=== PATIENT | female | born 1980 | race Caucasian/White ===

== ENCOUNTER 2017-12-04 12:07 | Emergency (ER) | payer MEDICAID ==
[~2017-12-04 12:07] MED LIST: ACE3 PO; ACE500 PO; CEPH-13 PO; CIPR-344 PO; CYC10 PO; DIPH-740 PO; DOC100 PO; DOXY-179 PO; ETOD200C26 PO; FAM20 PO; HYDR-3083 PO; HYDR-3104 PO; HYDR-653 PO; HYDR-654 PO; HYDR50CA47 PO; IBU200 PO; IBU600 PO; IBU800 PO; IBUP800T37 PO; KET10 PO; LIT300 PO; LIT300CAP PO; LOR1 PO; LOR5 PO; LOR5/325 PO; LOR7.5/325 PO; MESA250C2 PO; MET4 PO; METHO500 PO; METO-733 PO; METR-1 PO; NAPR-744 PO; NO MEDS; NO ROUTINE MEDS; NOR5/325 PO; OND4 PO; ONDA4TAB PO; OXYC-373 PO; OXYC-865 PO; PER PO; PHEN200T32 PO; PRE20 PO; PRED20TA6 PO; PREN-85 PO; PRO25 PO; PROM-110 PO; RANI-345 PO; SULF-198 PO; TRAZ-133 PO; TRAZ50TA34 PO
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
[2017-12-04 13:30] VITALS: BP 101/71
[2017-12-04] MEDS ORDERED: FLUCONAZOLE 150 MG TAB PO ONE (14:00)
[2017-12-04] MEDS ORDERED: CEPHALEXIN MONO 500 MG CAP PO ONE (14:00)
[2017-12-04] MEDS ORDERED: MUPI15CR10 TP (14:28)
[2017-12-04] MEDS ORDERED: CEPH500T7 PO (14:28)
[2017-12-04] MEDS ORDERED: FLUC150T40 PO (14:29)
== END 2017-12-04 14:36 | disposition home or self-care (01) ==
LOC: ER 12:42
DX: L03.113 Cellulitis of right upper limb (principal); S50.861A Insect bite (nonvenomous) of right forearm, initial encounter
CPT/HCPCS: 87502; 99283

== ENCOUNTER 2018-06-21 19:54 | Emergency (ER) | payer MEDICAID ==
[~2018-06-21 19:54] MED LIST changes: +CEPH500T7 PO; +FLUC150T40 PO; +MUPI15CR10 TP
[2018-06-21 19:59] VITALS: BP 139/89
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
[2018-06-21] MEDS ORDERED: DIPHTH/TETANUS/ACEL. PERTUSSIS IM ONLY ONE (20:15)
[2018-06-21] MEDS ORDERED: IBUPROFEN 600 MG TAB PO ONE (20:45)
== END 2018-06-21 21:03 | disposition home or self-care (01) ==
LOC: ER 20:11
DX: S71.111A Laceration without foreign body, right thigh, initial encounter (principal); S70.11XA Contusion of right thigh, initial encounter; W26.0XXA Contact with knife, initial encounter
CPT/HCPCS: 90471; 90715; 99283

== ENCOUNTER 2018-08-17 16:09 | Emergency (ER) | payer MEDICAID ==
[~2018-08-17 16:09] MED LIST changes: -TRAZ50TA34 PO; +TRAZ50TA52 PO
[2018-08-17 16:13] VITALS: BP 111/79
--- NOTE | 2018-08-17 16:21 | ER Report ---
History and Physical Time Seen By MD: 16:21 Hx. of Stated Complaint: RIGHT EAR PAIN FOR SEVERAL MONTHS HPI/ROS CHIEF COMPLAINT: right ear pain HISTORY OF PRESENT ILLNESS: 37 year old female presents to ED with right ear pain that has been occurring for several months. Reports sharp constant pain in her inner ear that radiates to the back of her head, down her jaw, and down her neck. The pain is sharp and shooting. She takes Aleve approximately 4 times a day and it takes the edge off. Chewing and talking make the pain worse. She notices that the pain is worse when she travels and changes elevation. Reports swollen lymph nodes along her jaw. Reports the ear pain gives her generalized headaches. Reports associated symptoms of dizziness and decreased hearing. Reports associated symptoms of sinus congestion on and off. REVIEW OF SYSTEMS: Cosntitutional: No fever. No appetite change. HENT: Decreased hearing, ear pain, sinus congestion, headache, and dizziness as noted above. No ear drainage. Reports right sided tooth pain, but states she thinks she grinds her mouth at night. Respiratory: No cough, no dyspnea. Cardiovascular: Reports chest pain that comes and goes for the past two months. Pain radiates to her posterior aspect of left arm. No palpitations. Gastrointestinal: No vomiting, no abdominal pain. Genitourinary: Reports decreased urine output that is dark in color. No burning on urination. Musculoskeletal: No back pain. Allergies: Coded Allergies: ciprofloxacin (Verified Allergy, Severe, THROATS SWELLING, AND TONGUE SWELLING, 12/04/17) sulfamethoxazole (Verified Allergy, Severe, THROAT SWELLING AND TONGUE SWELLING, 12/04/17) trimethoprim (Verified Allergy, Severe, THROAT SWELLING AND TONGUE SWELLING, 12/04/17) Home Meds Active Scripts Ketorolac Tromethamine (KETOROLAC TROMETHAMINE) 10 Mg Tab, 10 MG PO Q6H, #20 TAB Prov:SANTIAGOFRANCOIS POWER 08/17/18 Past Medical/Surgical History Past medical hx for seizures, migraines, ulcerative colitis, frequent UTIs, tubal , miscarriages, uterine tear, left broken wrist, fractured hand, fractured right upper arm, depression/anxiety. Past surgical hx of cholecystectomy, cyst removal from ovary, hysterectomy, tubal ligation in 2009, left wrist surgery in 2010. Reviewed Nurses Notes: Yes Hx Smoking: Yes (1/2 TO 1 PACK DAILY FOR 20 YEARS) Smoking Status: Current: Every Day Smoker Exposure to Second Hand Smoke?: Yes Hx Substance Use Disorder: No Hx Alcohol Use: Yes Constitutional Vital Sign - Last 24 Hours 08/17/18 16:13 Temp 97.7 Pulse 72 Resp 20 B/P (MAP) 111/79 Pulse Ox 97 O2 Delivery Room Air Physical Exam General Appearance: The patient is alert, has no immediate need for airway protection and no current signs of toxicity. Eyes: Pupils equal and round no injection. HENT: On palpation of the jaw, the right side felt like a quasi dislocation with rapid reduction while closing the mouth. Left TMJ normal. TMs clear with no bulging bilaterally. No redness in external ears bilaterally. Patient reports pain with palpation of head behind ear. Respiratory: Chest is non tender, lungs are clear to auscultation. Cardiac: regular rate and rhythm Gastrointestinal: Abdomen is soft and non tender, no masses, bowel sounds normal. Musculoskeletal: Neck: Neck is supple and non tender. No swollen lymph nodes. Extremities have full range of motion and are non tender. Skin: No rashes or lesions. DIFFERENTIAL DIAGNOSIS: After history and physical exam differential diagnosis was considered for TMJ, inner ear infection, Eustachian tube dysfunction, sinus infection. Medical Decision Making ED Course/Re-evaluation ED Course Upon arrival to the ED, patient admitted to an exam room, hx and physical obtained, differentials considered. Patient presents with right ear pain that has been occurring for several months. Reports sharp constant pain in her inner ear that radiates to the back of her head, down her jaw, and down her neck. The pain is sharp and shooting. She takes Aleve approximately 4 times a day and it takes the edge off. Chewing and talking make the pain worse. She notices that the pain is worse when she travels and changes elevation. Reports swollen lymph nodes along her jaw. Reports the ear pain gives her generalized headaches. Reports associated symptoms of dizziness and decreased hearing. Reports associated symptoms of sinus congestion on and off. Patient also reports chest pain that comes and goes for the past two months. Pain radiates to her posterior aspect of left arm. No palpitations. As well, patient reports decreased urine output with dark urine. No burning or pain with urination. On exam, heart rate and rhythm regular, lungs are clear. On palpation of the jaw while patient open and closed her mouth, the right side felt like a quasi dislocation with rapid reduction while closing the mouth. Left TMJ normal. TMs clear with no bulging bilaterally. No redness in external ears bilaterally. Discussed with patient about doing a cardiac workup to assess the chest pain. Patient declines workup at this time, stating she had "all that done recently" and does not want to pay for it. Discussed with patient the importance of drinking more water while at work. 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 Since she is have sinus congestion, a eustachian tube dysfunction could also be contributing to the ear pain. Will prescribe toradol to help with her TMJ pain and she is to follow-up with a dentist. Patient reports she may grind her teeth at night, so she is to buy a mouth guard from [employer] to see if that helps with her pain. Patient agrees with plan of care. Decision to Disposition Date: Aug 17, 2018 Decision to Disposition Time: 16:53 Depart Departure Latest Vital Signs Vital Signs Date Time Temp Pulse Resp B/P (MAP) Pulse Ox O2 Delivery O2 Flow Rate FiO2 08/17/18 16:13 97.7 72 20 111/79 97 Room Air Impression: Primary Impression: Temporal mandibular joint disorder Additional Impression: Eustachian tube dysfunction Condition: Improved Disposition: HOME OR SELF-CARE New Scripts Ketorolac Tromethamine (KETOROLAC TROMETHAMINE) 10 Mg Tab 10 MG PO Q6H, #20 TAB Prov: FRANCOIS HENDERSON POWER 08/17/18 Patient Instructions: Temporomandibular Disorder (ED) Additional Instructions: Increase fluid intake. Get plenty of rest. Try wearing a mouth guard at night. Take the medication as prescribed. No Ibuprofen, Aleve, Motrin, Advil or Naproxen while taking the medication. Return to the ER if condition worsens. Follow up with dentist for definitive care for the TMJ. Problem Qualifiers Additional Impression: Eustachian tube dysfunction Laterality: right Qualified Codes: H69.81 - Other specified disorders of eustachian tube, right ear SANTIAGOFRANCOISNINA STEVE Aug 17, 2018 16:21
[2018-08-17] MEDS ORDERED: KET10 PO (16:51)
== END 2018-08-17 17:02 | disposition home or self-care (01) ==
LOC: ER 16:23
DX: M26.69 Other specified disorders of temporomandibular joint (principal); H69.81 Other specified disorders of Eustachian tube, right ear
CPT/HCPCS: 99282

== ENCOUNTER → 2018-10-28 | Emergency (ER) | payer MEDICAID ==
[~2018-10-28] MED LIST changes: +ALB18R INH; +ALBUTEROL/IPRATROPIUM 3 ML NEB NEB ONE; +BENZ200C15 PO; +KETOROLAC 30 MG/ML VIAL IVP ONE; +LIDOCAINE 5% PATCH TP SCH; +PATCH REMOVAL 1 EA TP SCH
--- NOTE | 2018-10-28 18:16 | ER Report ---
History and Physical Time Seen By MD: 18:03 Hx. of Stated Complaint: Pt. has been feeling bad for 3 weeks, but today she started having right upper chest pain that radiates to upper back. She also feels weak. Cough started 3 days ago, with green sputum. Pain increases with coughing. Hot and cold sweats at home. HPI/ROS CHIEF COMPLAINT: Right-sided chest pain HISTORY OF PRESENT ILLNESS: This is a 37-year-old female presents to the emergency room for right-sided chest pain. Patient states over the last few weeks she's had increased right-sided chest pain, she has also developed a semi- productive cough, has now developed some nasal congestion. She has had intermittent subjective fevers. No nausea or vomiting. No rashes. No headaches. No other complaints REVIEW OF SYSTEMS: Constitutional: As above. Eyes: No discharge. ENT: No sore throat. Cardiovascular: As above. Respiratory: As above. Gastrointestinal: No abdominal pain, no vomiting. Genitourinary: No hematuria. Musculoskeletal: As above. Skin: No rashes. Neurological: No headache. Allergies: Coded Allergies: ciprofloxacin (Verified Allergy, Severe, THROATS SWELLING, AND TONGUE SWELLING, 10/28/18) sulfamethoxazole (Verified Allergy, Severe, THROAT SWELLING AND TONGUE SWELLING, 10/28/18) trimethoprim (Verified Allergy, Severe, THROAT SWELLING AND TONGUE SWELLING, 10/28/18) Home Meds Active Scripts Prednisone (PREDNISONE) 20 Mg Tablet, 20 MG PO BID, #10 TAB Prov:SONIA VICENTE [facility] 10/28/18 Benzonatate (BENZONATATE) 200 Mg Capsule, 200 MG PO TID PRN for COUGH, #15 CAP Prov:SONIA VICENTE [facility] 10/28/18 Albuterol Sulfate (VENTOLIN HFA) 18 Gm Inh, 2 PUFF INH Q4-6H, #1 INH Prov:SONIA VICENTE [facility] 10/28/18 Discontinued Scripts Ketorolac Tromethamine (KETOROLAC TROMETHAMINE) 10 Mg Tab, 10 MG PO Q6H, #20 TAB Prov:FRANCOIS HENDERSONP 08/17/18 Past Medical/Surgical History Patient has a past medical and surgical history of seizures, headaches, ulcerative colitis, bladder disease, and intact infection, tubal , miscarriage, uterine tear, left broken wrist, depression, right ovarian cyst removal. Hx Smoking: Yes (1/2 TO 1 PACK DAILY FOR 20 YEARS) Smoking Status: Current: Every Day Smoker Exposure to Second Hand Smoke?: Yes Hx Substance Use Disorder: No Hx Alcohol Use: Yes Constitutional Vital Sign - Last 24 Hours 10/28/18 10/28/18 10/28/18 10/28/18 17:06 17:07 17:11 17:11 Temp 98.8 Pulse ??? 81 79 Resp 12 20 B/P (MAP) 116/85 (95) 116/85 Pulse Ox 97 O2 Delivery Room Air 10/28/18 10/28/18 10/28/18 10/28/18 17:16 17:21 17:26 17:30 Pulse 84 82 82 Resp 22 29 16 B/P (MAP) 115/80 (92) 10/28/18 10/28/18 10/28/18 10/28/18 17:31 17:36 17:41 17:46 Pulse 80 82 87 88 Resp 14 18 33 41 10/28/18 10/28/18 10/28/18 10/28/18 17:51 17:56 18:00 18:01 Pulse 82 83 83 Resp 9 13 13 B/P (MAP) 113/84 (94) 10/28/18 10/28/18 10/28/18 10/28/18 18:06 18:11 18:16 18:21 Pulse 82 73 ??? 71 Resp 18 19 22 Pulse Ox 88 10/28/18 10/28/18 10/28/18 10/28/18 18:26 18:30 18:31 18:36 Pulse 76 71 71 Resp 14 12 17 B/P (MAP) 118/67 (84) Pulse Ox 94 94 94 10/28/18 10/28/18 10/28/18 10/28/18 18:41 18:46 18:51 18:56 Pulse 73 80 75 73 Resp 22 9 18 28 Pulse Ox 95 90 96 93 10/28/18 10/28/18 10/28/18 10/28/18 19:00 19:00 19:00 19:01 Pulse 69 74 Resp 16 13 B/P (MAP) 113/86 (95) Pulse Ox 96 97 O2 Delivery Room Air 10/28/18 19:04 Pulse 65 Resp 16 Physical Exam General Appearance: The patient is alert, has no immediate need for airway protection and no signs of toxicity. Eyes: Pupils equal and round no pallor or injection. ENT, Mouth: Mucous membranes are moist. Respiratory: There are no retractions, lungs are clear to auscultation, slightly diminished lung sounds in the right lung thomas. Cardiovascular: Regular rate and rhythm. No murmurs, clicks or rubs. Gastrointestinal: Abdomen is soft and non tender, no masses, bowel sounds nor mal. Neurological: Alert and oriented sore. Moving all extremities. Following. No focal neuro deficits. Skin: Warm and dry, no rashes. Musculoskeletal: Neck is supple non tender. Extremities are nontender, nonswollen and have full range of motion. DIFFERENTIAL DIAGNOSIS: After history and physical exam differential diagnosis was considered for chest pain including but not limited to myocardial ischemia, pericarditis pulmonary embolus, chest wall pain, pleural inflammation and pulmonary infectious causes. Medical Decision Making EKG/Imaging [place] [facility] [place] NAME: Ember Hatfield : 1980 MR: [id number] V: [id number] EXAM DATE: ORDERING PHYSICIAN: YUDI MADSEN TECHNOLOGIST: [place] [facility] [place] Ember Hat[place] : 1980 Visit/Account:[id number] Date of Sevice: 10/28/2018 CHEST PA LAT HISTORY: Productive cough. Chest pain. COMPARISON: None FINDINGS: Cardiomediastinal contours: The heart size is normal. Lungs and pleura: There is no finding of an infiltrate, lymphadenopathy or pleural effusion. Bones/soft tissues: There are no findings of a fracture. Abdomen: There are surgical clips in the upper abdomen. IMPRESSION: No active disease in the chest. Report Dictated By: Raymond Simon MD at 10/28/2018 6:42 PM Report E-Signed By: Raymond Simon MD at 10/28/2018 6:43 PM WSN:[id number] ED Course/Re-evaluation ED Course The patient was admitted to room. A history and physical obtained. Differential diagnoses were considered. An x-ray of the chest was negative for any acute cardiopulmonary process. Patient was given 30 mg IV Toradol which did improve t he patient's symptoms, she was also given a DuoNeb and a lidocaine patch to the right anterior chest. Patient states she did have improvement with the DuoNeb, lidocaine patches improving her discomfort. I did tell patient this is likely a viral bronchitis. A prescription for prednisone, albuterol inhaler and benzonatate worse and to the patient's pharmacy. Patient will follow-up with her primary care provider if no improvement, she'll return to the ER for worsening symptoms, she was agreeable with this plan of care and discharged home. Decision to Disposition Date: Oct 28, 2018 Decision to Disposition Time: 19:46 Depart Departure Latest Vital Signs Vital Signs Date Time Temp Pulse Resp B/P (MAP) Pulse Ox O2 Delivery O2 Flow Rate FiO2 10/28/18 19:04 65 16 10/28/18 19:01 97 10/28/18 19:00 Room Air 10/28/18 19:00 113/86 (95) 10/28/18 17:11 98.8 Impression: Primary Impression: Viral bronchitis Condition: Improved Disposition: HOME OR SELF-CARE New Scripts Prednisone (PREDNISONE) 20 Mg Tablet 20 MG PO BID, #10 TAB Prov: SONIA VICENTEP- 10/28/18 Benzonatate (BENZONATATE) 200 Mg Capsule 200 MG PO TID PRN for COUGH, #15 CAP Prov: SONIA VICENTE [facility]- 10/28/18 Albuterol Sulfate (VENTOLIN HFA) 18 Gm Inh 2 PUFF INH Q4-6H, #1 INH Prov: SONIA VICENTEP- 10/28/18 Patient Instructions: Acute Bronchitis (ED) Additional Instructions: Take the medications as prescribed. Be sure to drink plenty of water. Get plenty of rest. You can also try one spoonful funny 3-4 times a day. Follow-up with your primary care provider in 4-7 days if no improvement. Return to ER for any concerns or worsening symptoms. SONIA VICENTEP- Oct 28, 2018 18:16
--- NOTE | 2018-10-28 18:50 | RADIOLOGY IMAGING REPORT ---
FACILITY: [facility] [place] PATIENT NAME: Ember Hatfield : 1980 MR: [id number] V: [id number] EXAM DATE: ORDERING PHYSICIAN: YUDI MADSEN TECHNOLOGIST: Location: [facility] Patient: Ember Hatfield : 1980 Visit/Account:[id number] Date of Sevice: 10/28/2018 CHEST PA LAT HISTORY: Productive cough. Chest pain. COMPARISON: None FINDINGS: Cardiomediastinal contours: The heart size is normal. Lungs and pleura: There is no finding of an infiltrate, lymphadenopathy or pleural effusion. Bones/soft tissues: There are no findings of a fracture. Abdomen: There are surgical clips in the upper abdomen. IMPRESSION: No active disease in the chest. Report Dictated By: Raymond Simon MD at 10/28/2018 6:42 PM Report E-Signed By: Raymond Simon MD at 10/28/2018 6:43 PM WSN:[id number]
[2018-10-28 19:00] VITALS: BP 113/86
--- NOTE | 2018-10-29 08:30 | EKG ---
FACILITY: [facility] [place] PATIENT NAME: LEEANNA WOLFE : [id number] MR: [id number] V: [id number] EXAM DATE: ORDERING PHYSICIAN: YUDI MADSEN TECHNOLOGIST: FELI Test Reason : CHEST PAIN Blood Pressure : / mmHG Vent. Rate : 078 BPM Atrial Rate : 078 BPM P-R Int : 156 ms QRS Dur : 078 ms QT Int : 370 ms P-R-T Axes : 064 074 062 degrees QTc Int : 421 ms Sinus rhythm Possible biatrial enlargement Poor R wave progression anterior leads Abnormal ECG When compared with ECG of 28-APR-2015 09:29, No significant change was found Confirmed by BENNIE DUDLEY ([id number]) on 10/29/2018 10:59:02 AM Referred By: CALE Confirmed By:BENNIE DUDLEY
== END ==
LOC: ER 17:23
DX: J20.8 Acute bronchitis due to other specified organisms (principal); F17.210 Nicotine dependence, cigarettes, uncomplicated
CPT/HCPCS: 71046; 93005; 94640; 96374; 99283; J1885; J7620